=== PATIENT | female | born 1990 | race Two or more races ===

== ENCOUNTER 2019-03-25 13:12 | Inpatient (IN) | payer OTHER ==
[~2019-03-25] VITALS: Ht 154.9 cm; Wt 59.0 kg
[2019-03-26] MEDS ORDERED: OBSTETRIX DHA1 EACH PO (11:29)
== END 2019-03-27 13:53 | disposition home or self-care (01) | DRG 833 ==
LOC: LDR 13:12
PROVIDERS: ADMIT Obstetrics & Gynecology
PROC: 4A1HXCZ Monitoring of Products of Conception, Cardiac Rate, External Approach (ICD-10-PCS; principal; 2019-03-25)
DX: O47.03 False labor before 37 completed weeks of gestation, third trimester (principal); Z34.83 Encounter for supervision of other normal pregnancy, third trimester

== ENCOUNTER 2019-04-28 13:24 | Inpatient (IN) | payer OTHER ==
[~2019-04-28] VITALS: Ht 154.9 cm; Wt 59.4 kg
[~2019-04-28 13:24] MED LIST: OBSTETRIX DHA1 EACH PO
== END 2019-05-02 13:36 | DRG 833 ==
LOC: OB/GYN 13:24 → LDR 13:24 → OB/GYN 04-29 10:09
PROVIDERS: ADMIT Obstetrics & Gynecology
PROC: 4A1HXCZ Monitoring of Products of Conception, Cardiac Rate, External Approach (ICD-10-PCS; principal; 2019-04-28)
PROC: BY4FZZZ Ultrasonography of Third Trimester, Single Fetus (ICD-10-PCS; 2019-04-29)
DX: O60.03 Preterm labor without delivery, third trimester (principal); O35.8XX0 Maternal care for other (suspected) fetal abnormality and damage, not applicable or unspecified

== ENCOUNTER 2019-05-07 11:17 | Emergency (ER) | payer OTHER ==
[~2019-05-07] VITALS: Ht 154.9 cm; Wt 60.8 kg
[2019-05-07] MEDS ORDERED: PEPCID20 MG (11:45)
[2019-05-07] MEDS ORDERED: PEPCID AC20 MG PO (17:24)
[2019-05-07] MEDS ORDERED: ONDANSETRON ODT4 MG SL (17:24)
== END 2019-05-07 17:45 | disposition home or self-care (01) ==
LOC: ER 11:17
DX: O26.893 Other specified pregnancy related conditions, third trimester (principal); K29.70 Gastritis, unspecified, without bleeding; Z34.83 Encounter for supervision of other normal pregnancy, third trimester

== ENCOUNTER 2019-05-09 02:22 | Inpatient (IN) | payer OTHER ==
[~2019-05-09] VITALS: Ht 154.9 cm; Wt 134.0 kg
[~2019-05-09 02:22] MED LIST changes: +ONDANSETRON ODT4 MG SL; +PEPCID AC20 MG PO; +PEPCID20 MG
== END 2019-05-12 19:25 | disposition home or self-care (01) | DRG 807 ==
LOC: OB/GYN 02:22 → LDR 02:22 → OB/GYN 17:26
PROVIDERS: ADMIT Obstetrics & Gynecology
PROC: 10E0XZZ Delivery of Products of Conception, External Approach (ICD-10-PCS; principal; 2019-05-09)
PROC: 4A1HXCZ Monitoring of Products of Conception, Cardiac Rate, External Approach (ICD-10-PCS; 2019-05-09)
PROC: 3E033VJ Introduction of Other Hormone into Peripheral Vein, Percutaneous Approach (ICD-10-PCS; 2019-05-09)
DX: O80 Encounter for full-term uncomplicated delivery (principal); Z37.0 Single live birth; Z3A.37 37 weeks gestation of pregnancy